=== PATIENT | female | born 1955 | race Caucasian/White ===

== ENCOUNTER 2022-09-11 09:00 | Outpatient (CLI) | payer MEDICARE, BC, SELFPAY ==
--- NOTE | 2022-09-11 09:15 | CRLHL7_ITS ---
For Patients: As a result of the Century Cures Act, medical imaging exams and procedure reports are released immediately into your electronic medical record. You may view this report before your referring provider. If you have questions, please contact your health care provider. Technique: Double-contrast upper GI performed after the uneventful administration of effervescent crystals and thick barium followed by thin barium. Fluoroscopy time 1 minutes 22 seconds. Indication: UPPER ABDOMINAL PAIN Comparison: None. Findings: Swallowing mechanism: Normal. Esophageal motility: Normal. Gastroesophageal reflux: Mild. Hernia: None. Esophagus, stomach and duodenal bulb mucosa: Normal mucosa. No stricture or mass. Impression: Mild spontaneous gastroesophageal reflux to the midesophagus. Normal esophageal motility and no hernia. Normal stomach and duodenal bulb. Dictated by Armando Mae MD @ 09/11/2022 11:29:07 AM (Electronically Signed)
== END 2022-09-11 09:01 | disposition home or self-care (01) ==
PROVIDERS: PCP Family Medicine; Visit Provider Family Medicine
DX: R10.10 Upper abdominal pain, unspecified (principal); K21.9 Gastro-esophageal reflux disease without esophagitis
CPT/HCPCS: 74246